=== PATIENT | female | born 1965 | race Caucasian/White ===

== ENCOUNTER 2021-12-22 19:09 | Emergency (ER) | payer MEDICAID, SELFPAY ==
[2021-12-22 19:11] VITALS: BP 94/65; PULSE 93; RESP 16; TEMP 35.9; O2SAT 93; BMI 30.8
--- NOTE | 2021-12-22 19:30 | EKG12_ITS ---
Test Reason : CP Blood Pressure : / mmHG Vent. Rate : 092 BPM Atrial Rate : 092 BPM P-R Int : 148 ms QRS Dur : 074 ms QT Int : 590 ms P-R-T Axes : 020 -18 023 degrees QTc Int : 729 ms Normal sinus rhythm Anterolateral infarct , age undetermined , cannot be excluded Prolonged QT Abnormal ECG Confirmed by ZULEMA SO, JAYRO ([id number]), editor index INGA SINGLETON ([id number]) on 12/24/2021 10:16:41 AM Referred By: IAN Confirmed By:JAYRO POOLE MD
--- NOTE | 2021-12-22 19:32 | ED.VIS.CHEST ---
HPI History of Present Illness Chief Complaint: Shortness of Breath Informant: patient Onset/Context/Timing Onset: Today (14 hrs) Activity at onset: sudden and sleep (awoke at 0530 w/ sx) Timing: Continuous Quality: Positive for Pressure Location: Substernal and Left Chest Current Severity: Mild Maximum Severity: Moderate Worsened By: Nothing; Not Worsened By Breathing Relieved By: NTG Associated Symptoms: Positive for Dyspnea and Palpitations (racing off and on); Negative for Nausea, Vomiting, Diaphoresis, Cough, Fever and Lightheadedness Narrative Narrative: 56-year-old female states that she moved here from [place] after her recently and has not been here before, she states she used to see a loading supervisor in [place] for tachycardia unknown if any arrhythmia or not, she initially states she was post to have a heart cath but then states they did not do it because her , but when asked if she had a heart cath in the past she states yes, but does not know the results... She states she woke up this morning with chest pressure more on the left side and a little shortness of breath. No cough, but states she feels like she probably has pneumonia, she has had the symptoms with walking pneumonia in the past. She denies any fevers or chills. She has sleep apnea but no other history of lung disease, but then states that she was prescribed oxygen to use as needed. On further questioning, she states she had Covid in July and has never fully recovered and it sounds like she was prescribed oxygen then. She also states she has racing heartbeat off-and-on, without any near-syncope or syncope, but this has been going on chronically almost every day and she did have 1 of those episodes today as well. [facility] Medical History (Updated 12/22/21 @ 23:[address] Ronni Mckenzie MD) Arthritis Diabetes Fibromyalgia HTN (hypertension) Hyperlipidemia Migraines ELMA (obstructive sleep apnea) Tachycardia Home Medications aspirin [Aspir-81] 81 mg PO DAILY 12/22/21 [History Last Taken Unknown] clonidine HCl 0.1 mg PO TID 12/22/21 [History Last Taken Unknown] gabapentin 800 mg PO BID 12/22/21 [History Last Taken Unknown] insulin glargine [Lantus U-100 Insulin] 20 unit SUBCUT BID 12/22/21 [History Last Taken Unknown] insulin lispro See Protocol SUBCUT BID 12/22/21 [History Last Taken Unknown] lorazepam 1 mg PO TID PRN #10 tab 12/22/21 [Rx Last Taken Unknown] metoprolol tartrate 12/22/21 [History Last Taken Unknown] ondansetron HCl [Zofran] 8 mg PO Q8H PRN 12/22/21 [History Last Taken Unknown] oxycodone-acetaminophen [Percocet] 1 tab PO Q6H PRN 12/22/21 [History Last Taken Unknown] pantoprazole [Protonix] 40 mg PO DAILY #30 tab 12/22/21 [Rx Last Taken Unknown] tizanidine 4 mg PO TID PRN 12/22/21 [History Last Taken Unknown] topiramate [Topamax] 200 mg PO QHS 12/22/21 [History Last Taken Unknown] Allergy/AdvReac Type Severity Reaction Status Date / Time sumatriptan [From Imitrex] Allergy Nausea Verified 12/22/21 19:11 Social History Smoking Status: Never smoker ROS [facility] ED Constitutional Constitutional ED: Denies chills or fever(s) Eyes Eyes: Denies change in vision or diplopia ENT ENT ED: Denies rhinorrhea or sore throat Cardiovascular Cardiovascular: Reports as per HPI, chest pain and palpitations Respiratory/Chest Respiratory/Chest: Denies cough or dyspnea Gastrointestinal Gastrointestinal: Denies abdominal pain, diarrhea, nausea or vomiting Genitourinary Genitourinary ED: Denies dysuria or hematuria Musculoskeletal Musculoskeletal: Reports joint pain; Denies back pain or neck pain Integumentary Denies abscess or rash Neurologic Neurologic: Denies headache(s), paresthesias or weakness Psychiatric Psychiatric: Denies anxiety or suicidal thoughts EXAM Physical Exam Const Vital Signs: 12/22/21 19:11 12/22/21 19:34 12/22/21 19:42 Temperature 96.7 F L Temperature Source Temporal Pulse Rate 93 Respiratory Rate 16 Respiratory Effort Normal Non-Labored Normal Non-Labored Respiratory Depth Normal Respiratory Pattern Normal Blood Pressure 94/65 Blood Pressure Mean 74 Pulse Ox 93 Oxygen Delivery Method Room Air Room Air 12/22/21 20:10 12/22/21 21:03 12/22/21 21:27 Temperature Temperature Source Pulse Rate 89 85 84 Respiratory Rate 15 12 16 Respiratory Effort Respiratory Depth Respiratory Pattern Blood Pressure 121/76 H Blood Pressure Mean 91 Pulse Ox 93 92 Oxygen Delivery Method Room Air Room Air Positive well nourished, well developed and obese General Appearance ED: well developed and NAD Nutritional Appearance: obese HEENT Reports moist mucous membranes normocephalic and atraumatic Eyes PERRL and EOMs intact bilaterally Neck full ROM and supple Resp normal respiratory effort and clear to auscultation bilaterally Cardio regular rate, regular rhythm and no murmurs GI non-tender and non-distended Auscultation: normoactive bowel sounds Palpation: soft Back/Spine no CVA tenderness General Back: other FROM Extremity normal to inspection, no calf tenderness and no pedal edema General Extremety ED: Negative for edema, pulses abnormal or tenderness General Extremity: Negative for edema or pulses abnormal Neuro oriented x3, CN's II-XII intact bilaterally and no sensory deficits noted Sensorium / Orientation: awake and alert Motor Exam: strength 5/5 throughout Skin no rashes or lesions noted and no wounds MDM MDM MDM Narrative Medical decision making narrative: Patient did not take any other nitro that she was offered, she states the discomfort is still there but very mild. Her EKG is nonspecific but does not show an acute injury pattern. We have no old one on her since she recently moved here and has never been here before, we attempted to get records including an old EKG from [facility] [place], they basically told us that since their medical records department is closed right now, they will send us absolutely nothing. The patient states I had a heart attack before. She is on aspirin and no other anticoagulant or antiplatelet medications. She takes Lasix and does not take potassium supplementation except for a couple of times that she got [id number], which is probably why her potassium is 2.8. She does not know her medications and did not bring a list with her, but she does know she is on that and metoprolol and aspirin and clonidine. She then states that she has been having diffuse chest heaviness for several days that has been constant and she attributes it to her lungs which is why she thought she had pneumonia. She does not have pneumonia. She has not been coughing, she wants a Covid test. I think doing a repeat 2-hour troponin is reasonable since her EKG has nonspecific ST-T wave abnormalities diffusely although I think this is probably more likely related to her potassium levels since it is mostly flattening. We are going to replace some of that. Gave her an albuterol treatment, she states it did not seem to help and she still has some mild chest discomfort. She is wondering if this is due to anxiety because of her relatively recent , and she wants something for anxiety. She states she cannot go home with her discomfort like this. She was given Vistaril and a GI cocktail. She says she felt better afterwards and her repeat troponin came back negative, she would like some Ativan for her anxiety because she has Vistaril at home and its not working well enough. Also states she has a history of reflux but she does not take anything for it so also prescribed her Protonix. Lab Data Attestation: I reviewed the patient's lab results. Labs: Laboratory Results - last 24 hr 12/22/21 12/22/21 12/22/21 19:50 19:50 22:08 WBC 11.5 H RBC 5.55 H Hgb 15.8 H Hct 46.5 MCV 83.8 MCH 28.5 MCHC 34.0 RDW Std Deviation 39.8 RDW Coeff of Gera 12.9 Plt Count 293 MPV 11.9 Immature Gran % (Auto) 0.500 Neut % (Auto) 63.8 Lymph % (Auto) 26.3 [place]ell % (Auto) 7.8 Eos % (Auto) 1.0 Baso % (Auto) 0.6 Absolute Neuts (auto) 7.4 Absolute Lymphs (auto) 3.03 Nucleated RBC % 0 Sodium 136 Potassium 2.8 L Chloride 96 L Carbon Dioxide 30.0 Anion Gap 10 BUN 15 Creatinine 1.00 Estim Creat Clear Calc 44.05 Est GFR (MDRD) Af Amer 73 Est GFR (MDRD) Non-Af 61 BUN/Creatinine Ratio 15.0 Glucose 177 H Calcium 10.1 Troponin I High Sens 8 7 Radiography Diagnostic Testing: Clinical Impression(s) from Imaging Studies Chest X-Ray 12/22/21 19:50 IMPRESSION: 1. Cardiac silhouette is at the upper limit of normal. No congestive failure. 2. No infiltrate consolidation or effusion Electronically Signed: Franky Jean MD at 20:04 EST , EKG Initial EKG: Attestation: I personally reviewed and interpreted this EKG as follows: Interpretation: Sinus Rhythm, No Acute Injury Pattern and Non-Specific ST Changes (diffuse T wave flattening) Prior: No Prior Discharge Plan Triage Chief Complaint: Shortness of Breath Other Complaint: Chest Pain ED Provider: Ronni Mckenzie Dx/Rx/DC Orders Clinical Impression: Chest pain, unspecified, Anxiety Instructions: ED Chest Pain, Uncertain Cause Prescriptions: New pantoprazole [Protonix] 40 mg tablet,delayed release (DR/EC) 40 mg PO DAILY Qty: 30 RF: 0 lorazepam 1 mg tablet 1 mg PO TID PRN (Reason: anxiety) Qty: 10 RF: 0 No Action clonidine HCl 0.1 mg Tablet 0.1 mg PO TID RF: 0 ondansetron HCl [Zofran] 8 mg Tablet 8 mg PO Q8H PRN (Reason: Nausea) RF: 0 aspirin [Aspir-81] 81 mg Tablet,Delayed Release (Dr/Ec) 81 mg PO DAILY RF: 0 oxycodone-acetaminophen [Percocet] 5-325 mg Tablet 1 tab PO Q6H PRN (Reason: Pain) RF: 0 gabapentin 800 mg Tablet 800 mg PO BID RF: 0 topiramate [Topamax] 100 mg Tablet 200 mg PO QHS RF: 0 insulin lispro 100 unit/mL Insulin Pen See Protocol sliding scale dose SUBCUT BID RF: 0 Lantus U-100 Insulin 100 unit/mL Cartridge 20 unit SUBCUT BID RF: 0 tizanidine 4 mg Capsule 4 mg PO TID PRN (Reason: Pain) RF: 0 metoprolol tartrate RF: 0 Referrals: JUSTINA AMES [Other] Felicitas Palacio MD [STAFF PHYSICIAN] - 5-7 Days (for primary care) Albert Pang MD [STAFF PHYSICIAN] - (for cardiology) Disposition Disposition: Home, Self Care
--- NOTE | 2021-12-22 19:50 | RAD_ITS ---
INDICATION: chest pain EXAMINATION/TECHNIQUE: X-RAY - XR Chest 1 View COMPARISON: None. FINDINGS: LIFE-SUPPORT AND LINES: 1. None HEART AND VESSELS: Cardiac silhouette is upper limit of normal. No evidence congestive failure. LUNGS AND PLEURAL SPACES: Lungs are clear. No focal infiltrate, consolidation or effusions. No evidence of pneumothorax. No pulmonary mass is noted. MEDIASTINUM AND HILAR REGIONS: No masses adenopathy noted. No areas of calcification. Visualized upper airway is normal in position. BONY ELEMENTS: No acute bony changes noted. RAD/Chest 1 View (Portable) IMPRESSION: 1. Cardiac silhouette is at the upper limit of normal. No congestive failure. 2. No infiltrate consolidation or effusion Electronically Signed: Franky Jean MD at 20:04 EST ,
[2021-12-22 19:58] LABS: Absolute Lymphocyte Count 3.03 X10^3/uL (0.83-4.51); Absolute Neutrophil Count 7.4 X10^3/uL (2.0-7.7); Basophil# 0.07 X10^3/uL; Basophil% 0.6 % (0-1); Eosinophil# 0.11 X10^3/uL; Hematocrit 46.5 % (37-47); Hemoglobin 15.8 g/dL (12.0-15.0); Lymphocyte # 3.03 X10^3/ul (0.83-4.51); Lymphocyte % 26.3 % (19-41); Mean Corpuscular Hgb 28.5 pg (27.0-32.0); Mean Corpuscular Volume 83.8 fL (81-99); Mean Platelet Vol. 11.9 fl (6.2-12.0); Monocyte% 7.8 % (0-10); NRBC Flagged by Analyzer 0 % (0-5); Neutrophil # 7.36 X10^3/uL (2.7-7.7); Neutrophil % 63.8 % (47-70); Platelet Count 293 K/mm3 (150-450); RBC Distribution Width CV 12.9 % (11.6-14.6); RBC Distribution Width SD 39.8 fl (35.1-43.9); Red Blood Count 5.55 M/mm3 (4.2-5.4); White Blood Count 11.5 K/mm3 (4.4-11.0)
[2021-12-22 20:10] VITALS: PULSE 89; RESP 15; O2SAT 93
[2021-12-22 20:15] LABS: Anion Gap 10 (5-15); BUN 15 mg/dL (7-18); Calcium,Total 10.1 mg/dL (8.5-10.1); Chloride 96 mmol/L (98-107); EST Glomerular Filtration Rate 61 mL/min (>60); Est Glom Filt Rate - Afr Amer 73 mL/min (>60); Estimated Creatinine Clearance 44.05 ml/min; Glucose 177 mg/dL (74-106); Potassium 2.8 mmol/L (3.5-5.1); Sodium Level 136 mmol/L (136-145); Troponin-I HS 8 pg/mL (3.0-54.0)
[2021-12-22 21:03] VITALS: BP 121/76; PULSE 85; RESP 12; O2SAT 92
[2021-12-22] MEDS: Albuterol 2.5 MG/3 ML VIAL.NEB. INHALATION (21:26)
[2021-12-22 21:27] VITALS: PULSE 84; RESP 16
[2021-12-22] MEDS: Potassium Chloride 10mEq/100mL 10 MEQ/100 ML IV.SOLN. 100 MEQ IV BOLUS (21:55)
[2021-12-22] MEDS: Potassium Chloride Oral Tablet 20 MEQ 40 MEQ PO (21:57)
[2021-12-22] MEDS: Mag Hydrox/Al Hydrox/Simeth 30 ML UDC PO (22:01)
[2021-12-22] MEDS: hydrOXYzine PAM 25 MG Capsule 50 MG PO (22:01)
[2021-12-22 22:31] LABS: Troponin-I HS 7 pg/mL (3.0-54.0)
[2021-12-22 23:35] VITALS: PULSE 89; RESP 14; O2SAT 94
== END 2021-12-22 23:36 | disposition home or self-care (01) ==
PROVIDERS: Emergency Provider Emergency Medicine; Visit Provider Emergency Medicine
DX: R07.9 Chest pain, unspecified (principal); E11.9 Type 2 diabetes mellitus without complications; Z79.4 Long term (current) use of insulin; E78.5 Hyperlipidemia, unspecified; F41.9 Anxiety disorder, unspecified; I10 Essential (primary) hypertension; M79.7 Fibromyalgia; G47.33 Obstructive sleep apnea (adult) (pediatric); Z79.82 Long term (current) use of aspirin; Z79.899 Other long term (current) drug therapy; G43.909 Migraine, unspecified, not intractable, without status migrainosus; E66.9 Obesity, unspecified; Z63.4 Disappearance and death of family member; Z68.30 Body mass index [BMI] 30.0-30.9, adult
CPT/HCPCS: 71045; 80048; 84484; 85025; 93005; 94640; 96365; 99285; J7030; A4216

== ENCOUNTER 2021-12-29 16:48 | Emergency (ER) | payer MEDICAID, SELFPAY ==
[2021-12-29 16:50] VITALS: BP 108/78; PULSE 102; RESP 16; TEMP 35.6; O2SAT 92; BMI 30.8
--- NOTE | 2021-12-29 17:38 | CT_ITS ---
STUDY: CT BRAIN WITHOUT CONTRAST REASON FOR EXAM: Female, 56 years old. FALL RADIATION DOSAGE (If Supplied By Facility): CTDIvol = ( 44.99 ) mGy, DLP = ( 779.24 ) mGycm TECHNIQUE: Transaxial CT imaging of the brain was performed without administration of intravenous contrast material. Individualized dose optimization techniques were used for this CT. COMPARISON: No relevant priors. FINDINGS: Focal left posterior parietal scalp swelling. Normal calvarium. Normal size ventricles and extra-axial spaces for the patient''s age. Normal white matter tracts of the cerebral hemispheres. Normal basal ganglia and thalami. Normal brainstem. Normal cerebellum. There is no intracranial hemorrhage. There are no findings of an acute ischemic infarction. Normal visualized paranasal sinuses. CT/Brain/Head without Contrast IMPRESSION: No acute intracranial pathology of the brain. Electronically Signed: Han Lemon DO at 19:06 EST ,
--- NOTE | 2021-12-29 17:38 | CT_ITS ---
HISTORY: Trauma, fall EXAMINATION: CT Spine Cervical W/O Contrast Injection TECHNIQUE: Helically acquired images were obtained of the cervical spine. 2D reformatted images were reviewed. A radiation dose optimization technique was used for this scan. IV Contrast dosage and agent: None. COMPARISON: None FINDINGS: VERTEBRAE: No fracture or traumatic subluxation. Normal alignment. Normal craniocervical junction and cervicothoracic junction. DISCS and SPINAL CANAL: Disc heights are preserved. No critical stenosis. NECK SOFT TISSUES: No prevertebral soft tissue swelling. LUNG APICES: Clear. CT/Spine Cervical without Contras IMPRESSION: No evidence of acute cervical spinal fracture. Individualized dose optimization techniques were used for this CT. at 1840 Reported and signed by: Naresh Reina MD Electronically Signed: Naresh Reina MD at 18:38 EST ,
--- NOTE | 2021-12-29 17:43 | ED.VIS.FALL ---
HPI HPI - Fall History of Present Illness Chief Complaint: Fall Informant: patient Narrative Narrative: Presents by private vehicle mechanical fall prior to arrival hitting her head. Patient reports in the bathroom sitting down when she fell backwards hitting the baseboard. No loss of consciousness. Patient takes a baby aspirin. No other anticoagulants. No neck pain. No back pain. No arm pain or paresthesias. Patient has a bump on her head. Patient ambulates with a cane. She able to ambulate afterwards. Very mild headache. PFSH PFS Medical History Arthritis Diabetes Fibromyalgia GERD (gastroesophageal reflux disease) HTN (hypertension) Hyperlipidemia Migraines ELMA (obstructive sleep apnea) Tachycardia Home Medications aspirin [Aspir-81] 81 mg PO DAILY 12/22/21 [History Last Taken Unknown] clonidine HCl 0.1 mg PO TID 12/22/21 [History Last Taken Unknown] gabapentin 800 mg PO BID 12/22/21 [History Last Taken Unknown] insulin glargine [Lantus U-100 Insulin] 20 unit SUBCUT BID 12/22/21 [History Last Taken Unknown] insulin lispro See Protocol SUBCUT BID 12/22/21 [History Last Taken Unknown] lorazepam 1 mg PO TID PRN #10 tab 12/22/21 [Rx Last Taken Unknown] metoprolol tartrate 12/22/21 [History Last Taken Unknown] ondansetron HCl [Zofran] 8 mg PO Q8H PRN 12/22/21 [History Last Taken Unknown] oxycodone-acetaminophen [Percocet] 1 tab PO Q6H PRN 12/22/21 [History Last Taken Unknown] pantoprazole [Protonix] 40 mg PO DAILY #30 tab 12/22/21 [Rx Last Taken Unknown] tizanidine 4 mg PO TID PRN 12/22/21 [History Last Taken Unknown] topiramate [Topamax] 200 mg PO QHS 12/22/21 [History Last Taken Unknown] Allergy/AdvReac Type Severity Reaction Status Date / Time sumatriptan [From Imitrex] Allergy Nausea Verified 12/29/21 16:50 Surgical History unable to obtain Social History Smoking Status: Never smoker ROS ROS ED Constitutional Constitutional ED: Denies chills, fever(s) or sweats Eyes Eyes: Denies change in vision ENT ENT ED: Denies dysphagia or sore throat Cardiovascular Cardiovascular: Denies chest pain, leg edema, palpitations or racing heartbeat Respiratory/Chest Respiratory/Chest: Denies cough, dyspnea or dyspnea on exertion Gastrointestinal Gastrointestinal: Denies abdominal pain, diarrhea, nausea or vomiting Genitourinary Genitourinary ED: Denies dysuria, hematuria or urinary frequency Musculoskeletal Musculoskeletal: Denies back pain, extremity pain or neck pain Integumentary Denies rash or wounds Neurologic Neurologic: Reports headache(s); Denies paresthesias or weakness EXAM Physical Exam Const Vital Signs: 12/29/21 16:50 Temperature 96.1 F L Temperature Source Temporal Pulse Rate 102 H Respiratory Rate 16 Blood Pressure 108/78 Blood Pressure Mean 88 Pulse Ox 92 Oxygen Delivery Method Room Air Positive well nourished and well developed General Appearance ED: well developed and NAD HEENT Reports moist mucous membranes HEENT Narrative: Scalp hematoma left crown, skin intact. No hemotympanum. No neck pain. normocephalic Eyes PERRL, EOMs intact bilaterally and conjunctivae normal General Eye ED: Yes normal appearance of both eyes Neck no lymphadenopathy and supple Neck Narrative: No step-offs. General: Negative for tenderness Chest Wall Chest: Negative for tenderness Resp normal respiratory effort and normal air movement Effort and Inspection: symmetric chest movement; Negative for respiratory distress Cardio regular rate, regular rhythm and no murmurs Peripheral Pulses: pulses 2+ throughout GI normal to inspection, nondistended, normoactive bowel sounds and non-tender Palpation: Negative for guarding or rebound tenderness present Back/Spine no CVA tenderness and no thoracic nor lumbar tenderness Extremity normal to inspection Extremity Narrative: Full range of motion all 4 extremities. Pulses intact x4. General Extremety ED: Negative for edema or tenderness General Extremity: Negative for edema Neuro oriented x3 and no sensory deficits noted Sensorium / Orientation: awake and alert Skin no rashes or lesions noted and no wounds Skin Narrative: See above MDM MDM MDM Narrative Medical decision making narrative: Patient mild headache around the site. Scalp hematoma. Tylenol and ice ordered. Trauma scans head and neck ordered for further evaluation. Negative results. Return precautions. F/u outpatient. Radiography Diagnostic Testing: Clinical Impression(s) from Imaging Studies Brain CT 12/29/21 17:38 IMPRESSION: No acute intracranial pathology of the brain. Electronically Signed: Han Lemon DO at 19:06 EST , Cervical Spine CT 12/29/21 17:38 IMPRESSION: No evidence of acute cervical spinal fracture. Individualized dose optimization techniques were used for this CT. at 1840 Reported and signed by: Naresh Reina MD Electronically Signed: Naresh Reina MD at 18:38 EST , Discharge Plan Triage Chief Complaint: Fall Other Complaint: Head Injury ED Provider: Jerry Melendez Dx/Rx/DC Orders Clinical Impression: Traumatic hematoma of scalp, CHI (closed head injury) Instructions: ED Scalp Contusion, ED Head Injury (Adult) Prescriptions: No Action clonidine HCl 0.1 mg Tablet 0.1 mg PO TID RF: 0 ondansetron HCl [Zofran] 8 mg Tablet 8 mg PO Q8H PRN (Reason: Nausea) RF: 0 aspirin [Aspir-81] 81 mg Tablet,Delayed Release (Dr/Ec) 81 mg PO DAILY RF: 0 oxycodone-acetaminophen [Percocet] 5-325 mg Tablet 1 tab PO Q6H PRN (Reason: Pain) RF: 0 gabapentin 800 mg Tablet 800 mg PO BID RF: 0 topiramate [Topamax] 100 mg Tablet 200 mg PO QHS RF: 0 insulin lispro 100 unit/mL Insulin Pen See Protocol sliding scale dose SUBCUT BID RF: 0 Lantus U-100 Insulin 100 unit/mL Cartridge 20 unit SUBCUT BID RF: 0 tizanidine 4 mg Capsule 4 mg PO TID PRN (Reason: Pain) RF: 0 metoprolol tartrate RF: 0 pantoprazole [Protonix] 40 mg tablet,delayed release (DR/EC) 40 mg PO DAILY Qty: 30 RF: 0 lorazepam 1 mg tablet 1 mg PO TID PRN (Reason: anxiety) Qty: 10 RF: 0 Primary Care Provider: Care Physician,No Primary Referrals: NOT,DEFINED [NON-STAFF] - Activity Restrictions/Additional Instructions: CT scan of your head and cervical spine negative. Continue Tylenol every 6 hours as needed. Disposition Disposition: Home, Self Care Discharge Date/Time: 12/29/21 23:59
[2021-12-29] MEDS: Acetaminophen 500 MG Tablet 1000 MG PO (18:38)
== END 2021-12-29 19:11 | disposition home or self-care (01) ==
LOC: ED 18:34
PROVIDERS: Emergency Provider Emergency Medicine; Visit Provider Emergency Medicine
DX: S00.03XA Contusion of scalp, initial encounter (principal); E11.9 Type 2 diabetes mellitus without complications; Z79.4 Long term (current) use of insulin; E78.5 Hyperlipidemia, unspecified; I10 Essential (primary) hypertension; W18.09XA Striking against other object with subsequent fall, initial encounter; Y93.9 Activity, unspecified; Y92.9 Unspecified place or not applicable; M19.90 Unspecified osteoarthritis, unspecified site; M79.7 Fibromyalgia; G47.33 Obstructive sleep apnea (adult) (pediatric); Z79.82 Long term (current) use of aspirin; Z79.899 Other long term (current) drug therapy
CPT/HCPCS: 70450; 72125; 99283

== ENCOUNTER 2022-04-09 19:08 | Emergency (ER) | payer MEDICAID, SELFPAY ==
[2022-04-09 19:10] VITALS: BP 122/76; PULSE 109; RESP 16; TEMP 36.3; O2SAT 99; BMI 32.5
--- NOTE | 2022-04-09 19:31 | RAD_ITS ---
INDICATION: pain EXAMINATION/TECHNIQUE: X-RAY - LEFT XR Knee Complete 4 Views or More 4 VIEWS COMPARISON: None. FINDINGS: SOFT TISSUES: There is a small knee joint effusion. No radiopaque foreign body. Small, rounded soft tissue ossification posterior and anterior, lateral knee potentially representing loose bodies. BONES/JOINTS: No acute fracture or malalignment. There is significant medial femoral compartment and moderate patellofemoral compartment and mild lateral femoral compartment degenerative joint changes. No sclerotic or destructive changes observed. RAD/Knee 4 or More Views IMPRESSION: Osteoarthritic changes, most severely involving the medial femoral compartment. Soft tissue ossifications posterior and anterior, lateral knee suspicious for intra-articular loose bodies. Electronically Signed: Marvin Quintero DO at 20:30 EDT ,
--- NOTE | 2022-04-09 19:31 | RAD_ITS ---
INDICATION: pain EXAMINATION/TECHNIQUE: X-RAY - RIGHT XR Hip Unilateral with Pelvis when performed; 2-3 Views 3 VIEWS COMPARISON: Left knee x-rays obtained in conjunction with this exam. FINDINGS: SOFT TISSUES: No soft tissue swelling or gas. No radiopaque foreign body. Enthesophyte seen associated with the iliac crests, greater trochanters and ischial tuberosities, bilaterally symmetric. Enthesophyte versus os acetabulum right hip. BONES/JOINTS: No acute fracture or malalignment. Preservation of the joint space and no degenerative bony proliferative changes. No sclerotic or destructive changes observed. RAD/HIP, UNI W/ Pelvis 2-3 Views IMPRESSION: Multiple enthesophytes may be indicative of diffuse idiopathic skeletal hyperostosis. Right hip os acetabulum versus enthesophyte. No fracture or focal osseous lesion. Electronically Signed: Marvin Quintero DO at 20:35 EDT ,
--- NOTE | 2022-04-09 19:32 | ED.VIS.FALL ---
HPI HPI - Fall History of Present Illness Chief Complaint: Fall Narrative Narrative: 57-year-old female presenting after mechanical fall. She states she was coming out of the [facility] and she tripped and fell on the curb. She injured her left hand and her left knee which she fell on. She states her right hip hurts as well but she does not recall landing on it. She states his posterior on the gluteal region. Patient has a slight abrasion to the left kneecap. She has bruising and swelling over the left fifth MCP. Patient states she did hit her head and has a superficial abrasion of the scalp on the left forehead and some bruising around her left eye. No dizziness, lightheadedness, visual complaints. Patient not anticoagulated. No neck pain. Patient states he took a Percocet prior to arrival. [facility] Medical History Arthritis Diabetes Fibromyalgia GERD (gastroesophageal reflux disease) HTN (hypertension) Hyperlipidemia Migraines ELMA (obstructive sleep apnea) Tachycardia Home Medications aspirin [Aspir-81] 81 mg PO DAILY 12/22/21 [History Last Taken Unknown] clonidine HCl 0.1 mg PO TID 12/22/21 [History Last Taken Unknown] gabapentin 800 mg PO BID 12/22/21 [History Last Taken Unknown] insulin glargine [Lantus U-100 Insulin] 20 unit SUBCUT BID 12/22/21 [History Last Taken Unknown] insulin lispro See Protocol SUBCUT BID 12/22/21 [History Last Taken Unknown] lorazepam 1 mg PO TID PRN #10 tab 12/22/21 [Rx Last Taken Unknown] metoprolol tartrate 12/22/21 [History Last Taken Unknown] ondansetron HCl [Zofran] 8 mg PO Q8H PRN 12/22/21 [History Last Taken Unknown] oxycodone-acetaminophen [Percocet] 1 tab PO Q6H PRN 12/22/21 [History Last Taken Unknown] pantoprazole [Protonix] 40 mg PO DAILY #30 tab 12/22/21 [Rx Last Taken Unknown] tizanidine 4 mg PO TID PRN 12/22/21 [History Last Taken Unknown] topiramate [Topamax] 200 mg PO QHS 12/22/21 [History Last Taken Unknown] Allergy/AdvReac Type Severity Reaction Status Date / Time sumatriptan [From Imitrex] Allergy Nausea Verified 04/09/22 19:12 Social History Smoking Status: Never smoker ROS ROS ED Review of Systems ROS Unobtainable: Denies due to encephalopathy Constitutional Constitutional ED: Denies chills or fever(s) Eyes Eyes: Denies blurry vision, change in vision or diplopia ENT ENT ED: Denies rhinorrhea or sore throat Cardiovascular Cardiovascular: Denies chest pain or palpitations Respiratory/Chest Respiratory/Chest: Denies cough or dyspnea Gastrointestinal Gastrointestinal: Denies abdominal pain Genitourinary Genitourinary ED: Denies dysuria or hematuria Musculoskeletal Musculoskeletal: Reports other Details: Left knee and right hip pain ; Denies back pain or neck pain Integumentary Reports Abrasions Neurologic Neurologic: Denies headache(s) or weakness Psychiatric Psychiatric: Denies anxiety or depression EXAM Physical Exam Const Vital Signs: 04/09/22 19:10 Temperature 97.3 F L Temperature Source Oral Pulse Rate 109 H Respiratory Rate 16 Blood Pressure 122/76 H Blood Pressure Mean 91 Pulse Ox 99 Oxygen Delivery Method Room Air Positive well nourished General Appearance ED: NAD HEENT Reports normocephalic and TM's clear HEENT Narrative: Superficial abrasion to the left upper forehead. No skull deformity. There is some bruising around the left eye. No extraocular muscle entrapment. No facial bone deformities. Minimally tender. Tympanic Membrane ED: Yes TM's clear Eyes PERRL and EOMs intact bilaterally Eyes Narrative: No extraocular muscle entrapment Resp normal respiratory effort and clear to auscultation bilaterally Cardio regular rate and regular rhythm Extremity Extremity Narrative: Superficial abrasion over the left patella. Range of motion is normal. No ligament laxity. No obvious effusion. Right hip pain posterior to the right greater trochanter. No obvious deformity. Patient able to stand and walk with antalgic gait. Neuro oriented x3 Sensorium / Orientation: alert Psych mental status grossly normal and thought process normal Skin Skin Narrative: As described above MDM MDM MDM Narrative Medical decision making narrative: Patient took Percocet for pain prior to arrival. Patient has no focal neurologic deficits or lateralizing signs or symptoms. She has mild abrasions to the head. She is denying any dizziness, lightheadedness, headache, visual complaints. I do not believe she needs CT imaging of her brain as she is not anticoagulated. I did not attain x-rays of the right hip, left knee and left hand which on my interpretation show no acute fractures. There are multiple degenerative changes noted. The radiologist does agree. Patient is to continue to ice and elevate these areas. She has pain medication at home that she can use as needed. Impression: 1. Mechanical fall 2. Left hand contusion 3. Left knee contusion 4. Right hip strain Radiography Diagnostic Testing: Clinical Impression(s) from Imaging Studies Hip/Pelvis X-Ray 04/09/22 19:31 IMPRESSION: Multiple enthesophytes may be indicative of diffuse idiopathic skeletal hyperostosis. Right hip os acetabulum versus enthesophyte. No fracture or focal osseous lesion. Electronically Signed: Marvin Quintero DO at 20:35 EDT , Knee X-Ray 04/09/22 19:31 IMPRESSION: Osteoarthritic changes, most severely involving the medial femoral compartment. Soft tissue ossifications posterior and anterior, lateral knee suspicious for intra-articular loose bodies. Electronically Signed: Marvin Quintero DO at 20:30 EDT , Hand X-Ray 04/09/22 19:50 IMPRESSION: Mild degenerative changes second and fifth distal interphalangeal joints. Otherwise normal appearance fifth finger. Soft tissue ossifications adjacent to the distal interphalangeal joint index finger suggesting remote trauma. Electronically Signed: Marvin Quintero DO at 20:25 EDT , Discharge Plan Triage Chief Complaint: Fall ED Provider: Junior Rizzo Dx/Rx/DC Orders Instructions: ED Hand Contusion, ED Contusion, Lower Extremity, ED Mechanical Fall Prescriptions: No Action clonidine HCl 0.1 mg Tablet 0.1 mg PO TID RF: 0 ondansetron HCl [Zofran] 8 mg Tablet 8 mg PO Q8H PRN (Reason: Nausea) RF: 0 aspirin [Aspir-81] 81 mg Tablet,Delayed Release (Dr/Ec) 81 mg PO DAILY RF: 0 oxycodone-acetaminophen [Percocet] 5-325 mg Tablet 1 tab PO Q6H PRN (Reason: Pain) RF: 0 gabapentin 800 mg Tablet 800 mg PO BID RF: 0 topiramate [Topamax] 100 mg Tablet 200 mg PO QHS RF: 0 insulin lispro 100 unit/mL Insulin Pen See Protocol sliding scale dose SUBCUT BID RF: 0 Lantus U-100 Insulin 100 unit/mL Cartridge 20 unit SUBCUT BID RF: 0 tizanidine 4 mg Capsule 4 mg PO TID PRN (Reason: Pain) RF: 0 metoprolol tartrate RF: 0 pantoprazole [Protonix] 40 mg tablet,delayed release (DR/EC) 40 mg PO DAILY Qty: 30 RF: 0 lorazepam 1 mg tablet 1 mg PO TID PRN (Reason: anxiety) Qty: 10 RF: 0 Primary Care Provider: [facility] Doctor,Out of Referrals: [facility] Doctor,Out of [Primary Care Provider] - Disposition Disposition: Home, Self Care
--- NOTE | 2022-04-09 19:50 | RAD_ITS ---
INDICATION: pain 5th mcp EXAMINATION/TECHNIQUE: X-RAY - LEFT XR Hand Min 3 Views 3 VIEWS COMPARISON: None. FINDINGS: SOFT TISSUES: No soft tissue swelling or gas. No radiopaque foreign body. Small soft tissue ossification, roughly 3 mm in diameter, radial side of the distal, index finger, middle phalanx. On the ulnar side of the distal interphalangeal joint of the index finger there is a tiny punctate calcification along the expected course of the ulnar collateral ligament. BONES/JOINTS: No acute fracture or malalignment. There are some mild degenerative changes of the second and fifth finger distal interphalangeal joints. No sclerotic or destructive changes observed. RAD/Hand Min 3 Views IMPRESSION: Mild degenerative changes second and fifth distal interphalangeal joints. Otherwise normal appearance fifth finger. Soft tissue ossifications adjacent to the distal interphalangeal joint index finger suggesting remote trauma. Electronically Signed: Marvin Quintero DO at 20:25 EDT ,
== END 2022-04-09 22:46 | disposition home or self-care (01) ==
PROVIDERS: Emergency Provider Student in an Organized Health Care Education/Training Program; Visit Provider Student in an Organized Health Care Education/Training Program
DX: S80.02XA Contusion of left knee, initial encounter (principal); E11.9 Type 2 diabetes mellitus without complications; Z79.4 Long term (current) use of insulin; W18.09XA Striking against other object with subsequent fall, initial encounter; M19.90 Unspecified osteoarthritis, unspecified site; M79.7 Fibromyalgia; K21.9 Gastro-esophageal reflux disease without esophagitis; I10 Essential (primary) hypertension; E78.5 Hyperlipidemia, unspecified; G43.909 Migraine, unspecified, not intractable, without status migrainosus; G47.33 Obstructive sleep apnea (adult) (pediatric); Z79.899 Other long term (current) drug therapy; Z79.82 Long term (current) use of aspirin; S00.81XA Abrasion of other part of head, initial encounter; S00.12XA Contusion of left eyelid and periocular area, initial encounter; S80.212A Abrasion, left knee, initial encounter; S73.101A Unspecified sprain of right hip, initial encounter; S60.222A Contusion of left hand, initial encounter
CPT/HCPCS: 73130; 73502; 73564; 99282

== ENCOUNTER 2022-07-31 13:54 | Emergency (ER) | payer MEDICAID, SELFPAY ==
[2022-07-31 13:54] VITALS: BP 93/72; PULSE 82; RESP 18; TEMP 36.3; O2SAT 94; BMI 43.9
--- NOTE | 2022-07-31 14:18 | RAD_ITS ---
v Electronically Signed: Cisco Benson MD at 14:35 EDT , RAD/Abdomen Single View (Portable) IMPRESSION: undefined
--- NOTE | 2022-07-31 15:22 | EX.ED.DYSGE1 ---
HPI <ZHENG Simpson - Last Filed: 07/31/22 16:13> History of Present Illness Chief Complaint: Foreign Body Narrative Narrative: Prior to arrival patient was injecting her subcutaneous insulin into the left side of her abdomen and when she pulled it out the needle was missing so she thinks it is stuck inside. She tried using a piece of tape against her skin to get it out but nothing happened. She denies pain. PFSH <ZHENG Simpson - Last Filed: 07/31/22 16:13> [facility] Medical History Arthritis Diabetes Fibromyalgia GERD (gastroesophageal reflux disease) HTN (hypertension) Hyperlipidemia Migraines ELMA (obstructive sleep apnea) Tachycardia Home Medications aspirin 81 mg tablet,delayed release 81 mg PO DAILY 12/22/21 [History Last Taken Unknown] clonidine HCl 0.1 mg tablet 0.1 mg PO TID 12/22/21 [History Last Taken Unknown] gabapentin 800 mg tablet 800 mg PO BID 12/22/21 [History Last Taken Unknown] insulin glargine 100 unit/mL subcutaneous cartridge 20 unit subcut BID 12/22/21 [History Last Taken Unknown] insulin lispro 100 unit/mL subcutaneous pen See Protocol subcut BID 12/22/21 [History Last Taken Unknown] lorazepam 1 mg tablet 1 mg PO TID PRN anxiety #10 tabs 12/22/21 [Rx Last Taken Unknown] metoprolol tartrate 12/22/21 [History Last Taken Unknown] ondansetron HCl 8 mg tablet 8 mg PO Q8H PRN Nausea 12/22/21 [History Last Taken Unknown] oxycodone-acetaminophen 5 mg-325 mg tablet (Percocet) 1 tab PO Q6H PRN Pain 12/22/21 [History Last Taken Unknown] pantoprazole 40 mg tablet,delayed release (Protonix) 40 mg PO DAILY #30 tabs 12/22/21 [Rx Last Taken Unknown] tizanidine 4 mg capsule 4 mg PO TID PRN Pain 12/22/21 [History Last Taken Unknown] topiramate 100 mg tablet (Topamax) 200 mg PO QHS 12/22/21 [History Last Taken Unknown] Allergy/AdvReac Type Severity Reaction Status Date / Time sumatriptan [From Imitrex] Allergy Nausea Verified 07/31/22 13:57 Social History Smoking Status: Never smoker ROS <ZHENG Simpson - Last Filed: 07/31/22 16:13> ROS ED ROS Narrative Constitutional: Negative for fever, chills, malaise. Eyes: Negative for visual change. ENT: Negative for sore throat, rhinorrhea. CVS: Negative for palpitations, chest pain. Respiratory: Negative for shortness of breath, cough. GI: Negative for abdominal pain, nausea, vomiting. : Negative for dysuria, hematuria or frequency. Neuro: Negative for headache, motor/sensory dysfunction. Skin: Negative for rash, abscess, or wound. Musc: Negative for joint pain, swelling, trauma. Heme: Negative for easy bruising, bleeding, lymphadenopathy. EXAM <ZHENG Simpson - Last Filed: 07/31/22 16:13> Physical Exam Narrative Exam Narrative: CONST: Patient sitting in no acute distress. EYES: Normal inspection. NECK: Normal inspection. RESP: No respiratory distress, CTAB. CVS: Regular rate and rhythm, no murmur, no gallop. ABD: Soft and nontender, no guarding or rebound. Right-sided abdominal diabetic sensor. No palpable foreign body, no evidence of bruising or skin changes. SKIN: Color normal, no rash, warm, dry, intact. EXTREMITIES: Normal appearance. NEURO: Oriented x4. PSYCH: Normal affect. Const Vital Signs: 07/31/22 13:54 07/31/22 15:49 Temperature 97.3 F L Temperature Source Temporal Pulse Rate 82 Respiratory Rate 18 Respiratory Effort Normal Non-Labored Respiratory Pattern Normal Blood Pressure 93/72 Blood Pressure Mean 79 Pulse Ox 94 Oxygen Delivery Method Room Air <Dr. Deon Pandey, DO - Last Filed: 07/31/22 15:55> Physical Exam Const Vital Signs: 07/31/22 13:54 07/31/22 15:49 Temperature 97.3 F L Temperature Source Temporal Pulse Rate 82 Respiratory Rate 18 Respiratory Effort Normal Non-Labored Respiratory Pattern Normal Blood Pressure 93/72 Blood Pressure Mean 79 Pulse Ox 94 Oxygen Delivery Method Room Air MDM <ZHENG Simpson - Last Filed: 07/31/22 16:13> MDM MDM Narrative Medical decision making narrative: Patient thinks her insulin needle may still be inside after giving an abdominal injection. There are no overlying skin changes at the injection site. No palpable foreign body. KUB shows no evidence of radiopaque foreign body. Patient counseled to monitor for signs of redness or swelling or drainage that would warrant return but right now there is no evidence that anything is present. She was discharged in stable condition Radiography Diagnostic Testing: Clinical Impression(s) from Imaging Studies KUB X-Ray 07/31/22 14:18 IMPRESSION: undefined ADDENDUM: 07/31/22 1602 IMPRESSION: There are no radiodense foreign bodies noted. Constipation Electronically Signed: Cisco Benson MD at 15:55 EDT , <Dr. Deon Pandey, DO - Last Filed: 07/31/22 15:55> MDM Radiography Diagnostic Testing: Clinical Impression(s) from Imaging Studies KUB X-Ray 07/31/22 14:18 IMPRESSION: undefined ADDENDUM: 07/31/22 1602 IMPRESSION: There are no radiodense foreign bodies noted. Constipation Electronically Signed: Cisco Benson MD at 15:55 EDT , Treatment and Re-Evaluation Narrative: I have personally performed a face to face assessment of the patient and have reviewed the DESHAWN Note. I performed a substantive portion of the visit including all aspects of the following. My vargas findings include: History: Patient is a 57-year-old female who presents with possible foreign body in her abdomen. Patient states she gave herself her insulin injection today. Patient states that when she withdrew the syringe, the needle had broken off. Patient thinks it is still in her abdomen. Patient denies any redness or swelling. Patient denies any fevers or chills. Patient denies any discharge or drainage. Exam: Vital signs are stable. Patient is afebrile. Patient is in no acute distress. Abdomen is soft. Bowel sounds are normal. The injection site is clean and dry. There is no bleeding. There is no erythema or warmth. I did not palpate a foreign body. There is no tenderness. There is no rebound or guarding noted. Medical Decision Making: Acute abdominal x-rays were obtained. There are 2 views. On my interpretation, there is no radiopaque foreign body. There is no free air or air-fluid levels. Radiologist also interpreted the x-rays and agrees. Patient was advised to follow-up with her primary care physician in 5 to 7 days. Patient understood and was agreeable with the plan. All questions were answered. Discharge Plan Triage Chief Complaint: Foreign Body ED Midlevel Provider: Freda Doherty ED Provider: Deon Pandey Dx/Rx/DC Orders Clinical Impression: Normal abdominal exam Instructions: ED Foreign Body Soft Tissue Prescriptions: No Action clonidine HCl 0.1 mg Tablet 0.1 mg PO TID ondansetron HCl [Zofran] 8 mg Tablet 8 mg PO Q8H PRN (Reason: Nausea) aspirin [Aspir-81] 81 mg Tablet,Delayed Release (Dr/Ec) 81 mg PO DAILY oxycodone-acetaminophen [Percocet] 5-325 mg Tablet 1 tab PO Q6H PRN (Reason: Pain) gabapentin 800 mg Tablet 800 mg PO BID topiramate [Topamax] 100 mg Tablet 200 mg PO QHS insulin lispro 100 unit/mL Insulin Pen See Protocol SUBCUT BID Protocol: 3. Sliding Scale Insulin Med Dosing Condition: 150-189 mg/dl = 1 unit Condition: 190-229 mg/dl = 2 units Condition: 230-269 mg/dl = 3 units Condition: 270-309 mg/dl = 4 units Condition: 310-349 mg/dl = 5 units Condition: 350-399 mg/dl = 6 units Condition: 400-449 mg/dl = 7 units Condition: Greater than 449 call physician Protocol Text: - Use for Total Daily Dose of Insulin 37-55 units - Obsese, infected, or steroid patients MEDIUM DOSING ALGORITHIM Lantus U-100 Insulin 100 unit/mL Cartridge 20 unit SUBCUT BID tizanidine 4 mg Capsule 4 mg PO TID PRN (Reason: Pain) metoprolol tartrate pantoprazole [Protonix] 40 mg tablet,delayed release (DR/EC) 40 mg PO DAILY Qty: 30 0RF lorazepam 1 mg tablet 1 mg PO TID PRN (Reason: anxiety) Qty: 10 0RF Primary Care Provider: Care Physician,No Primary Referrals: [facility] Doctor,Out of [Non-Staff] - Activity Restrictions/Additional Instructions: If the area develops redness swelling or drainage to return to the ER. Disposition Disposition: Home, Self Care
== END 2022-07-31 16:25 | disposition home or self-care (01) ==
PROVIDERS: Emergency Provider Emergency Medicine; Visit Provider Emergency Medicine
DX: Z03.823 Encounter for observation for suspected inserted (injected) foreign body ruled out (principal); E11.9 Type 2 diabetes mellitus without complications; Z79.4 Long term (current) use of insulin; I10 Essential (primary) hypertension; E78.5 Hyperlipidemia, unspecified; M79.7 Fibromyalgia; K21.9 Gastro-esophageal reflux disease without esophagitis; G47.33 Obstructive sleep apnea (adult) (pediatric); G43.909 Migraine, unspecified, not intractable, without status migrainosus; Z79.899 Other long term (current) drug therapy; Z79.82 Long term (current) use of aspirin
CPT/HCPCS: 74018; 99282

== ENCOUNTER 2022-08-29 17:04 | Emergency (ER) | payer MEDICAID, SELFPAY ==
[2022-08-29 17:08] VITALS: BP 123/71; PULSE 97; RESP 18; TEMP 36.8; O2SAT 92; BMI 34.3
--- NOTE | 2022-08-29 17:35 | RAD_ITS ---
STUDY: X-RAY CHEST REASON FOR EXAM: Female, 57 years old. Scheduled for spine procedure today but experienced low oxygen levels. Was sent to the ER. TECHNIQUE: Single AP portable view of the chest. COMPARISON: 12/22/2021. FINDINGS: Minimal linear atelectasis at the left lung base. The lungs are otherwise clear. There is no demonstrated pleural abnormality. Borderline cardiomegaly. Normal mediastinum and noel. Normal visualized pulmonary arteries. Normal visualized aortic arch and descending thoracic aorta. There are diffuse degenerative changes of the visualized thoracic spine. Normal visualized ribs, clavicles, and shoulders. There is no demonstrated abnormality of the visualized soft tissue structures of the upper abdomen. RAD/Chest 1 View (Portable) IMPRESSION: Borderline cardiomegaly with minimal linear atelectasis at the left lung base. There is no acute infiltrate or mass. Electronically Signed: Jose Gaitan DO at 17:55 EDT ,
--- NOTE | 2022-08-29 17:35 | ED.VIS.DYS ---
HPI History of Present Illness Chief Complaint: Shortness of Breath Informant: patient Narrative Narrative: Patient had O2 sats about 88% during a procedure today. She had injections of her lower back. Prior to the procedure she had gotten pain meds and Valium. She has history of hypoxia. She is on oxygen at home at 2 L but did not bring it with her. Her hypoxia is longstanding since she had COVID a little over a year ago. She does not feel any different today than normal. She has not been coughing or more dyspneic. No chest pain. No fevers or chills. She did not feel different. The physicians who did the procedure in [facility] stated she had to go to the emergency department so she did present here. [facility] Medical History Arthritis Diabetes Fibromyalgia GERD (gastroesophageal reflux disease) HTN (hypertension) Hyperlipidemia Migraines ELMA (obstructive sleep apnea) Tachycardia Home Medications aspirin 81 mg tablet,delayed release 81 mg PO DAILY 12/22/21 [History Last Taken Unknown] clonidine HCl 0.1 mg tablet 0.1 mg PO TID 12/22/21 [History Last Taken Unknown] gabapentin 800 mg tablet 800 mg PO BID 12/22/21 [History Last Taken Unknown] insulin glargine 100 unit/mL subcutaneous cartridge 20 unit subcut BID 12/22/21 [History Last Taken Unknown] insulin lispro 100 unit/mL subcutaneous pen See Protocol subcut BID 12/22/21 [History Last Taken Unknown] lorazepam 1 mg tablet 1 mg PO TID PRN anxiety #10 tabs 12/22/21 [Rx Last Taken Unknown] metoprolol tartrate 12/22/21 [History Last Taken Unknown] ondansetron HCl 8 mg tablet 8 mg PO Q8H PRN Nausea 12/22/21 [History Last Taken Unknown] oxycodone-acetaminophen 5 mg-325 mg tablet (Percocet) 1 tab PO Q6H PRN Pain 12/22/21 [History Last Taken Unknown] pantoprazole 40 mg tablet,delayed release (Protonix) 40 mg PO DAILY #30 tabs 12/22/21 [Rx Last Taken Unknown] tizanidine 4 mg capsule 4 mg PO TID PRN Pain 12/22/21 [History Last Taken Unknown] topiramate 100 mg tablet (Topamax) 200 mg PO QHS 12/22/21 [History Last Taken Unknown] Allergy/AdvReac Type Severity Reaction Status Date / Time sumatriptan [From Imitrex] Allergy Nausea Verified 08/29/22 17:08 Social History Smoking Status: Never smoker ROS ROS ED Constitutional Constitutional ED: Denies chills or fever(s) ENT ENT ED: Denies rhinorrhea or sore throat Cardiovascular Cardiovascular: Denies chest pain, palpitations or racing heartbeat Respiratory/Chest Respiratory/Chest: Reports dyspnea and other Details: Patient has chronic dyspnea but is not different today than normal. ; Denies cough Gastrointestinal Gastrointestinal: Denies nausea or vomiting Genitourinary Genitourinary ED: Denies dysuria Musculoskeletal Musculoskeletal: Denies back pain or neck pain Integumentary Denies rash Neurologic Neurologic: Denies weakness Psychiatric Psychiatric: Denies anxiety Endocrine Endocrinology: Denies polydipsia or polyuria Allergic/Immunologic Allergic/Immunologic ED: Denies mouth swelling, tongue swelling or urticaria EXAM Physical Exam Const Vital Signs: 08/29/22 17:08 08/29/22 17:28 Temperature 98.3 F Temperature Source Temporal Pulse Rate 97 Respiratory Rate 18 Respiratory Effort Short of Breath Respiratory Depth Normal Respiratory Pattern Normal Blood Pressure 123/71 H Blood Pressure Mean 88 Pulse Ox 92 Oxygen Delivery Method Room Air Room Air Positive well nourished HEENT Reports moist mucous membranes Eyes EOMs intact bilaterally Neck no JVD Resp normal respiratory effort and clear to auscultation bilaterally Resp Narrative: Saturations are normal at 93% on room air while sitting in bed. I have her move around a bit and she is 96%. Her lungs are completely clear. No pain with a deep breath. Effort and Inspection: Negative for pain with movement Auscultation: Negative for rales, rhonchi or wheezes Cardio regular rate and regular rhythm GI non-tender and non-distended Back/Spine no CVA tenderness Back/Spine Narrative: Band-Aid spots on lower back are intact with no bleeding or swelling Extremity General Extremety ED: Negative for tenderness Neuro Sensorium / Orientation: alert, oriented to person, oriented to place and oriented to time; Negative for orientation impaired, confused, lethargic or stuporous Psych mental status grossly normal Skin no wounds MDM MDM MDM Narrative Medical decision making narrative: X-ray shows no marked abnormalities. Patient's recheck. She still asymptomatic. We will get her home. She is going to contact her oxygen supply company. She evidently does have oxygen cylinders that she can take with her but she did not do that today because it was empty. Radiography Diagnostic Testing: Clinical Impression(s) from Imaging Studies Chest X-Ray 08/29/22 17:35 IMPRESSION: Borderline cardiomegaly with minimal linear atelectasis at the left lung base. There is no acute infiltrate or mass. Electronically Signed: Jose Gaitan DO at 17:55 EDT Reading Location ID and State: [address] [place] [address] Tel [phone], Service support , Borderline cardiomegaly mild atelectasis but no acute process. Discharge Plan Triage Chief Complaint: Shortness of Breath ED Provider: Richard Longoria Dx/Rx/DC Orders Clinical Impression: Hypoxia, O2 dependent Instructions: Traveling with Oxygen Prescriptions: No Action clonidine HCl 0.1 mg Tablet 0.1 mg PO TID ondansetron HCl [Zofran] 8 mg Tablet 8 mg PO Q8H PRN (Reason: Nausea) aspirin [Aspir-81] 81 mg Tablet,Delayed Release (Dr/Ec) 81 mg PO DAILY oxycodone-acetaminophen [Percocet] 5-325 mg Tablet 1 tab PO Q6H PRN (Reason: Pain) gabapentin 800 mg Tablet 800 mg PO BID topiramate [Topamax] 100 mg Tablet 200 mg PO QHS insulin lispro 100 unit/mL Insulin Pen See Protocol SUBCUT BID Protocol: 3. Sliding Scale Insulin Med Dosing Condition: 150-189 mg/dl = 1 unit Condition: 190-229 mg/dl = 2 units Condition: 230-269 mg/dl = 3 units Condition: 270-309 mg/dl = 4 units Condition: 310-349 mg/dl = 5 units Condition: 350-399 mg/dl = 6 units Condition: 400-449 mg/dl = 7 units Condition: Greater than 449 call physician Protocol Text: - Use for Total Daily Dose of Insulin 37-55 units - Obsese, infected, or steroid patients MEDIUM DOSING ALGORITHIM Lantus U-100 Insulin 100 unit/mL Cartridge 20 unit SUBCUT BID tizanidine 4 mg Capsule 4 mg PO TID PRN (Reason: Pain) metoprolol tartrate pantoprazole [Protonix] 40 mg tablet,delayed release (DR/EC) 40 mg PO DAILY Qty: 30 0RF lorazepam 1 mg tablet 1 mg PO TID PRN (Reason: anxiety) Qty: 10 0RF Primary Care Provider: JUSTINA AMES Referrals: [facility] Doctor,Out of [Non-Staff] - Activity Restrictions/Additional Instructions: Follow-up with Dr. Ames as scheduled Disposition Disposition: Home, Self Care
--- NOTE | 2022-08-29 18:37 | ED.RN ---
PT O2 SATS DECREASE TO 89% ROOM AIR. THIS RN PLACES PT ON 2L NASAL CANNULA. PT TOLERATES WELL
[2022-08-29] MEDS: Acetaminophen 500 MG Tablet 1000 MG PO (18:43)
[2022-08-29 19:33] VITALS: PULSE 80; RESP 18; O2SAT 92
== END 2022-08-29 19:34 | disposition home or self-care (01) ==
PROVIDERS: Emergency Provider Emergency Medicine; Visit Provider Emergency Medicine
DX: R09.02 Hypoxemia (principal); E11.9 Type 2 diabetes mellitus without complications; R06.02 Shortness of breath; I10 Essential (primary) hypertension; Z99.81 Dependence on supplemental oxygen; E78.5 Hyperlipidemia, unspecified; U09.9 Post COVID-19 condition, unspecified
CPT/HCPCS: 71045; 99283